=== PATIENT | female | born 2000 | race African-American/Black ===

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

== ENCOUNTER 2020-02-12 09:01 | Emergency (ER) | payer SELFPAY ==
[~2020-02-12] VITALS: Ht 160 cm; Wt 50.0 kg
[~2020-02-12 09:01] MED LIST changes: +ZITHROMAX 250M250 MG PO
[2020-02-12 09:30] VITALS: TEMP 98.7
[2020-02-12] MEDS ORDERED: FLAGYL500 MG PO (12:11)
[2020-02-12 12:24] VITALS: BP 110/74; PULSE 68
== END 2020-02-12 12:12 | disposition home or self-care (01) ==
LOC: COL.ER 09:01
DX: N92.6 Irregular menstruation, unspecified (principal); N76.0 Acute vaginitis
CPT/HCPCS: J2405; J7030

== ENCOUNTER 2021-02-17 17:41 | Emergency (ER) | payer SELFPAY ==
[~2021-02-17] VITALS: Ht 162.6 cm; Wt 51.4 kg
[~2021-02-17 17:41] MED LIST changes: +FLAGYL500 MG PO
[2021-02-17 17:44] VITALS: TEMP 98.8
[2021-02-17 19:01] VITALS: BP 115/82; PULSE 93
== END 2021-02-17 19:01 | disposition home or self-care (01) ==
LOC: COL.ER 17:41
DX: S61.412A Laceration without foreign body of left hand, initial encounter (principal); L23.9 Allergic contact dermatitis, unspecified cause; N76.0 Acute vaginitis; N92.6 Irregular menstruation, unspecified; N92.0 Excessive and frequent menstruation with regular cycle; W25.XXXA Contact with sharp glass, initial encounter

== ENCOUNTER → 2021-02-24 | Outpatient (CLI) | payer SELFPAY | LOC: COL.ER 13:05 | DX: Z48.02 Encounter for removal of sutures (principal) ==

== ENCOUNTER → 2021-02-25 | Outpatient (CLI) | payer SELFPAY ==
[2021-02-25 13:49] VITALS: BP 97/67; PULSE 81
== END ==
LOC: COL.ER 13:07
DX: Z48.02 Encounter for removal of sutures (principal)

== ENCOUNTER 2023-07-26 09:38 | Emergency (ER) | payer MEDICAID ==
[~2023-07-26] VITALS: Ht 162.6 cm; Wt 51.8 kg
[~2023-07-26 09:38] MED LIST changes: +EZFE 200200 MG PO; +IBU800 M1 PO; +PERCOCET 325 MG1 TA2 PO; +PRENATAL TABLET PO; +SYMJEPI0.3 MG/0.3 IJ
[2023-07-26 09:44] VITALS: TEMP 99.1
[2023-07-26] MEDS ORDERED: NS 1,000 ML IV ONE (10:45)
[2023-07-26] MEDS ORDERED: CLEOCIN HCL300 MG PO (11:16)
[2023-07-26] MEDS ORDERED: NORCO 325 MG-51 TAB PO (11:16)
[2023-07-26 11:45] VITALS: BP 106/73; PULSE 79
== END 2023-07-26 12:03 | disposition home or self-care (01) ==
LOC: COL.ER 09:38
DX: G89.18 Other acute postprocedural pain (principal); M27.8 Other specified diseases of jaws; F17.210 Nicotine dependence, cigarettes, uncomplicated; F17.290 Nicotine dependence, other tobacco product, uncomplicated
CPT/HCPCS: J7030

== ENCOUNTER 2023-10-31 13:55 | Emergency (ER) | payer MEDICAID ==
[~2023-10-31] VITALS: Ht 162.6 cm; Wt 51.4 kg
[~2023-10-31 13:55] MED LIST changes: +CLEOCIN HCL300 MG PO; +NORCO 325 MG-51 TAB PO
[2023-10-31 13:59] VITALS: BP 104/68; PULSE 78; TEMP 98.4
== END 2023-10-31 15:37 | disposition home or self-care (01) ==
LOC: COL.ER 13:55
DX: T15.91XA Foreign body on external eye, part unspecified, right eye, initial encounter (principal); W44.9XXA Unspecified foreign body entering into or through a natural orifice, initial encounter